=== PATIENT | male | born 1955 | race Caucasian/White ===

== ENCOUNTER 2017-05-14 19:19 | Emergency (ER) | payer BC ==
[~2017-05-14] VITALS: Ht 185.4 cm; Wt 95.1 kg
[~2017-05-14 19:19] MED LIST: ALBU0.63 NEB; CEPH-368 PO; CLON2TAB2 PO; ESOM20CA PO; METH750T87 PO; OMEP40CA6 PO; OXYC-229 PO; OXYC1TAB7 PO; TRAM-28 PO; TRAM50TA2 PO; TRAZ50TA18 PO; WILL BRING LIST
[2017-05-14] MEDS ORDERED: INDIGESTION MED (19:41)
[2017-05-14 20:49] LABS: BLOOD UREA NITROGEN 19 mg/dL (7-18)
[2017-05-14 20:54] LABS: IS PT STATUS REG ER OR PRE ER? YES
[2017-05-14 22:08] VITALS: BP 126/75
== END 2017-05-14 22:10 | disposition home or self-care (01) ==
LOC: ED 22:04
DX: J44.1 Chronic obstructive pulmonary disease with (acute) exacerbation (principal)
CPT/HCPCS: 36415; 71020; 80048; 82040; 83880; 84484; 85025; 93005; 99285

== ENCOUNTER 2018-02-01 21:54 | Emergency (ER) | payer BC ==
[~2018-02-01] VITALS: Ht 185.4 cm; Wt 88.0 kg
[~2018-02-01 21:54] MED LIST changes: +INDIGESTION MED; -OXYC-229 PO; +OXYC-307 PO; -TRAM-28 PO; +TRAM-47 PO
[2018-02-01 22:57] LABS: BASOPHILS # (AUTO) 0.05 x10^3/uL (0-0.1); BASOPHILS % (AUTO) 0 % (0-1); EOSINOPHILS % (AUTO) 1 % (1-7); LYMPHOCYTES # (AUTO) 2.45 x10^3/uL (1-3.4); LYMPHOCYTES % (AUTO) 23 % (22-44); MD NO; MEAN CORPUSCULAR HEMOGLOBIN 28.8 pg (27.5-34.5); MEAN CORPUSCULAR HGB CONC 33.6 g/dL (33.2-36.2); MEAN CORPUSCULAR VOLUME 85.8 fL (81-97); MEAN PLATELET VOLUME 7.9 fL (7.4-10.4); MONOCYTES # (AUTO) 0.52 x10^3/uL (0.2-0.8); MONOCYTES % (AUTO) 5 % (2-9); NEUTROPHILS # (AUTO) 7.36 x10^3/uL (1.8-6.8); NEUTROPHILS % (AUTO) 70 % (42-75); PLATELET COUNT 247 x10^3/uL (130-400); RED BLOOD COUNT 5.44 x10^6/uL (4.38-5.82); RED CELL DISTRIBUTION WIDTH 14.3 % (9.4-14.8)
[2018-02-01 23:06] LABS: ALANINE AMINOTRANSFERASE 20 U/L (12-78); ALBUMIN 3.8 g/dL (3.4-5.0); CALCIUM 8.2 mg/dL (8.5-10.1); CHLORIDE 104 mmol/L (98-107); CREATININE 1.42 mg/dL (0.7-1.3)
[2018-02-01 23:11] LABS: ALKALINE PHOSPHATASE 70 U/L (45-117); ANION GAP 11 mmol/L (5-15); BILIRUBIN,TOTAL 0.9 mg/dL (0.2-1.0); TOTAL PROTEIN 7.3 g/dL (6.4-8.2)
[2018-02-01 23:56] LABS: MICROSCOPIC NOT IND
[2018-02-02 00:07] LABS: CULTURE INDICATED? NO
[2018-02-02 00:11] LABS: AMPHETAMINE SCREEN, URINE Negative (Negative); BARBITURATE SCREEN, URINE Negative (Negative); BENZODIAZEPINE SCREEN, URINE Negative (Negative); CANNABINOID SCREEN, URINE Negative (Negative); COCAINE SCREEN, URINE Negative (Negative); METHADONE SCREEN, URINE Negative (Negative); OPIATE SCREEN, URINE Negative (Negative)
[2018-02-02 01:26] VITALS: BP 137/77
[2018-02-02] MEDS ORDERED: OMNIPAQUE 350 MG/ML, 100ML BOTTLE ONE (02:48)
== END 2018-02-01 23:19 | disposition home or self-care (01) ==
LOC: ED 22:33
DX: K57.32 Diverticulitis of large intestine without perforation or abscess without bleeding (principal); Z79.899 Other long term (current) drug therapy; J44.9 Chronic obstructive pulmonary disease, unspecified
CPT/HCPCS: 36415; 74177; 80053; 80307; 81003; 83690; 85025; 99285; Q9967

== ENCOUNTER 2018-05-26 02:20 | Emergency (ER) | payer BC ==
[~2018-05-26] VITALS: Ht 185.4 cm; Wt 89.5 kg
[2018-05-26] MEDS ORDERED: MORPHINE SULFATE 4 MG/ML, 1ML IVPush PRN (03:00)
[2018-05-26] MEDS ORDERED: SODIUM CHLORIDE FLUSH 10ML SYR IVF ONE (03:00)
[2018-05-26] MEDS ORDERED: MORPHINE SULFATE 4 MG/ML, 1ML ONE (03:06)
[2018-05-26 03:13] LABS: BASOPHILS % (AUTO) 1 % (0-1); EOSINOPHILS # (AUTO) 0.55 x10^3/uL (0-0.4); EOSINOPHILS % (AUTO) 7 % (1-7); LYMPHOCYTES # (AUTO) 2.19 x10^3/uL (1-3.4); LYMPHOCYTES % (AUTO) 26 % (22-44); MD NO; MEAN CORPUSCULAR HEMOGLOBIN 30.3 pg (27.5-34.5); MEAN CORPUSCULAR HGB CONC 34.6 g/dL (33.2-36.2); MEAN CORPUSCULAR VOLUME 87.6 fL (81-97); MEAN PLATELET VOLUME 8.1 fL (7.4-10.4); MONOCYTES # (AUTO) 0.54 x10^3/uL (0.2-0.8); MONOCYTES % (AUTO) 7 % (2-9); NEUTROPHILS # (AUTO) 4.95 x10^3/uL (1.8-6.8); NEUTROPHILS % (AUTO) 60 % (42-75); PLATELET COUNT 218 x10^3/uL (130-400); RED BLOOD COUNT 5.15 x10^6/uL (4.38-5.82); RED CELL DISTRIBUTION WIDTH 14.9 % (9.4-14.8)
[2018-05-26 03:23] LABS: ALBUMIN 3.6 g/dL (3.4-5.0); ANION GAP 6 mmol/L (5-15); CALCIUM 8.1 mg/dL (8.5-10.1); CHLORIDE 108 mmol/L (98-107); CREATININE 1.06 mg/dL (0.7-1.3)
[2018-05-26] MEDS ORDERED: OMNIPAQUE 350 MG/ML, 100ML BOTTLE ONE (03:40)
[2018-05-26 04:42] LABS: MICROSCOPIC NOT IND
[2018-05-26 04:44] LABS: CULTURE INDICATED? NO
[2018-05-26 05:18] VITALS: BP 128/61
== END 2018-05-26 05:47 | disposition home or self-care (01) ==
LOC: ED 05:26
DX: K40.90 Unilateral inguinal hernia, without obstruction or gangrene, not specified as recurrent (principal); J44.9 Chronic obstructive pulmonary disease, unspecified; Z87.891 Personal history of nicotine dependence
CPT/HCPCS: 36415; 74177; 80048; 81003; 82040; 85025; 96374; 99285; Q9967

== ENCOUNTER 2019-09-08 22:21 | Emergency (ER) | payer BC ==
[~2019-09-08] VITALS: Ht 185.4 cm; Wt 85.0 kg
[~2019-09-08 22:21] MED LIST changes: -CLON2TAB2 PO; +CLON2TAB9 PO; +OMEP40CA42 PO; -OMEP40CA6 PO; -TRAZ50TA18 PO; +TRAZ50TA66 PO
[2019-09-08] MEDS ORDERED: SODIUM CHLORIDE FLUSH 10ML SYR IVF ONE (23:00)
--- NOTE | 2019-09-08 23:05 | NUR ---
PT INFORMED OF THE NEED FOR A UA.
[2019-09-08 23:10] LABS: BASOPHILS % (AUTO) 1 % (0-1); EOSINOPHILS # (AUTO) 0.64 x10^3/uL (0-0.4); EOSINOPHILS % (AUTO) 7 % (1-7); LYMPHOCYTES # (AUTO) 2.57 x10^3/uL (1-3.4); LYMPHOCYTES % (AUTO) 27 % (22-44); MD NO; MEAN CORPUSCULAR HGB CONC 33.4 g/dL (33.2-36.2); MEAN CORPUSCULAR VOLUME 92.8 fL (81-97); MEAN PLATELET VOLUME 8.8 fL (7.4-10.4); MONOCYTES # (AUTO) 0.45 x10^3/uL (0.2-0.8); MONOCYTES % (AUTO) 5 % (2-9); NEUTROPHILS # (AUTO) 5.72 x10^3/uL (1.8-6.8); NEUTROPHILS % (AUTO) 60 % (42-75); PLATELET COUNT 198 x10^3/uL (130-400); RED CELL DISTRIBUTION WIDTH 14.1 % (9.4-14.8)
[2019-09-08 23:14] LABS: ALANINE AMINOTRANSFERASE 18 U/L (12-78); ALBUMIN 3.6 g/dL (3.4-5.0); ANION GAP 7 mmol/L (5-15); CALCIUM 8.1 mg/dL (8.5-10.1); CHLORIDE 107 mmol/L (98-107); CREATININE 1.34 mg/dL (0.7-1.3)
[2019-09-08 23:16] LABS: ALKALINE PHOSPHATASE 66 U/L (45-117); BILIRUBIN,TOTAL 0.4 mg/dL (0.2-1.0); TOTAL PROTEIN 6.8 g/dL (6.4-8.2)
--- NOTE | 2019-09-08 23:37 | NUR ---
PT UP TO THE BR TO VOID. AMB STEADY. BALANCE WNL. CC UA COLLECTED AND SENT TO THE LAB.
[2019-09-08 23:45] LABS: MICROSCOPIC NOT IND
[2019-09-08 23:49] LABS: CULTURE INDICATED? NO
[2019-09-08] MEDS ORDERED: OMNIPAQUE 350 MG/ML, 100ML BOTTLE ONE (23:51)
--- NOTE | 2019-09-09 00:35 | NUR ---
D/C INST REVIEWED W/ THE PT TO INCLUDE LIFTING RESTRICTIONS. WORK NOTE. TX OF STRAIN. RETURN IF NO IMPROVEMENT OR F/U OP W/ PCP. THE PT VERB UNDERSTANDING AND DENIES QUESTIONS. THE PT AMB OUT OF THE ED W/O DIFF.
[2019-09-09 00:36] VITALS: BP 140/81
== END 2019-09-09 00:38 | disposition home or self-care (01) ==
LOC: ED 23:36
DX: R10.32 Left lower quadrant pain (principal); J43.9 Emphysema, unspecified; Z87.891 Personal history of nicotine dependence
CPT/HCPCS: 36415; 74177; 80053; 81003; 83690; 85025; 99284; Q9967